=== PATIENT | female | born 1985 | race Caucasian/White ===

== ENCOUNTER 2018-01-11 02:37 | Observation (INO) | payer BC, SELFPAY ==
[2018-01-11] VITALS (23 sets, daily range): BP systolic 100–140; BP diastolic 54–83; PULSE 50–91; RESP 10–19; TEMP 36.5–37.3; O2SAT 95–100; BMI 34.0
--- NOTE | 2018-01-11 | PATH_ITS ---
[facility] Accession Number: [id number] . 01 Material submitted: . APPENDIX . 02 Diagnosis: Appendix, Appendectomy: Acute appendicitis with serositis. Negative for neoplasm. MRV/01/13/2018 . 02 Electronically signed: . Franc Tsai MD, PhD, Pathologist NPI- [id number] . 01 Gross description: . Received in formalin, labeled appendix, is an intact appendix (length-10.2 cm, diameter-1.2 cm) with reyna dull smooth serosa and attached mesoappendix (up to 2.8 cm in depth). The resection margin is received stapled. The lumen contains brown solid soft material. The wall is up to 0.2 cm. No nodules, masses or lesions are identified. The resection margin is inked black. Section code: (A1) resection margin en face and three additional serial sections; (A2) one-half of the bivalved tip. ([id number]) /MRV . 02 Pathologist provided ICD-10: K35.80 . 02 CPT . 715120 Performed at: 01 [facility] [address] [place] [address], [place], [place] [id number] MD Chaparro Casey MD Phone: [phone] Performed at: 02 [facility] [address] [place], [place] [id number] MD Jovany Rodriguez MD Phone: [phone]
--- NOTE | 2018-01-11 02:57 | DI.US.S_ITS ---
PROCEDURE: US ABDOMEN COMPLETE INDICATIONS: severe epigastric pain with radiation to the back TECHNIQUE: Real-time scanning was performed of the abdominal and retroperitoneal organs, with image documentation. COMPARISON: None. FINDINGS: Liver: Liver is normal in size and homogeneous in echotexture. Gallbladder: 2.4 solitary gallstone present. No gallbladder wall thickening or pericholecystic fluid. Negative sonographic Colon's. Biliary ducts: Intrahepatic bile ducts are non-dilated. Extrahepatic bile duct caliber measures 5.0 mm. Normal is 6-7 mm or less in diameter, or 10 mm or less post-cholecystectomy. Pancreas: Visualized portions of the pancreas are sonographically normal. Spleen: Spleen is normal in size and homogeneous in echotexture. Kidneys: Kidneys are normal in size and echotexture. Right kidney measures 13.5 cm long; left kidney measures 11.6 cm long. No hydronephrosis or nephrolithiasis. No solid masses. Aorta: Visualized aorta is normal in caliber at less than 3 cm. Iliacs: Not well-seen. IVC: Intrahepatic inferior vena cava is patent. Miscellaneous: No free abdominal fluid. IMPRESSION: 1. Cholelithiasis without acute cholecystitis. Note: These findings are concordant with the preliminary interpretation. Dictated by: Ebenezer ADAMS Interpreted: Dav Beckett MD on 01/11/2018 at 8:34 Approved by: Robby Beckett M.D. on 01/11/2018 at 9:29
--- NOTE | 2018-01-11 03:00 | ED.ABDPAIN ---
HPI - Abdominal Pain General Chief Complaint: Abdominal Pain Stated Complaint: vomiting, back pain Time Seen by Provider: 01/11/18 02:40 Source: patient Mode of arrival: ambulatory Limitations: no limitations History of Present Illness HPI narrative: 32-year-old female with history of H pylori presents to the emergency department with severe epigastric pain and radiation to her back that started few hours ago. She has associated nausea and vomiting but denies any fever or chills. She had a normal bowel movement just prior to her arrival. She is worse with motion or palpation and improves with rest. She denies any dysuria, frequency or urgency nor any vaginal bleeding or discharge. She had a large meal of pizza and had some alcoholic beverages tonight. She denies any history of gallbladder, liver or pancreatic trouble MD complaint: abdominal pain Onset (ago): hour(s) Pain Consistency: constant Location: epigastric Severity: severe Quality: cramping, stabbing and aching Radiation: back Migration to: no migration Relieving factors: rest Exacerbating factors: eating and movement Associated symptoms: nausea and vomiting Related Data Home Medications Medication Instructions Recorded Confirmed No Known Home Medications 01/11/18 01/11/18 Allergies Allergy/AdvReac Type Severity Reaction Status Date / Time No Known Drug Allergies Allergy Verified 01/11/18 02:52 Review of Systems Review of Systems All systems reviewed & are unremarkable except as noted in HPI and below Constitutional Denies chills, Denies fever(s), Denies lethargy and Denies weakness Eyes Denies change in vision, Denies eye discharge, Denies irritation and Denies loss of vision ENT Ears, Nose, Mouth, and Throat: Denies change in voice, Denies neck pain and Denies sore throat Cardiovascular Denies chest pain, Denies irregular heart rhythm, Denies lightheadedness, Denies palpitations, Denies dyspnea, Denies dyspnea on exertion and Denies orthopnea Respiratory Denies cough, Denies dyspnea, Denies dyspnea on exertion and Denies wheezing Gastrointestinal Gastrointestinal: Reports abdominal pain, Denies change in bowel habits, Denies diarrhea, Reports nausea and Reports vomiting Genitourinary Denies hematuria, Denies flank pain, Denies urinary incontinence and Denies urinary urgency Musculoskeletal Denies neck pain Integumentary/Breasts Denies pruritus, Denies erythema, Denies rash and Denies wounds Neurologic Denies confusion, Denies loss of vision and Denies weakness Psychiatric Denies anxiety, Denies confusion, Denies depression, Denies homicidal ideation and Denies suicidal ideation Endocrine Denies palpitations Hematologic/Lymphatic Denies easy bruising Allergic/Immunologic Denies wheezing [facility] Medical History Abnormal Pap smear of cervix (Chronic) Anxiety (Chronic) Asthma (Chronic 1992) Cardiovascular system problem (Chronic 2016) Depression (Chronic 2011) History of heavy periods (Chronic) Painful menstrual periods (Chronic) Ankle pain (Resolved 2009) Chicken pox (Resolved 1986) Foot pain (Resolved 2009) H. pylori infection (Resolved 2010) Mumps (Resolved 1997) Plantar warts (Resolved 2004) Vaginal yeast infection (Resolved) Surgical History Anesthesia (Resolved) History of nasal surgery (Resolved 1997) Family History Brother Age: 30 Mental health problem Symptomatic congenital cytomegalovirus (CMV) infection Father Age: 65 Hypertension High cholesterol Grandfather Age: 89 Heart disease Grandfather Cancer Lung cancer Brain cancer Grandmother Cancer Cervical cancer Grandmother Diabetes mellitus Mother No problems noted. Family/Other Diabetes mellitus Social History Smoking Status: Never smoker Exam Narrative Exam Narrative: 32-year-old female obviously uncomfortable, rocking back and forth a bit and clutching her upper abdomen. Initial Vital Signs Initial Vital Signs: Vital Signs Temperature 98.3 F 01/11/18 02:46 Pulse Rate 57 L 01/11/18 02:46 Respiratory Rate 18 01/11/18 02:46 Blood Pressure 140/81 H 01/11/18 02:46 Pulse Oximetry 99 01/11/18 02:46 Const General: cooperative, well developed and acute distress Nutritional Appearance: well nourished Orientation: alert, awake, oriented x3 and not confused HENMT Head: normocephalic and atraumatic Ears: external ears normal and TM's normal bilaterally Nose: external nose normal and No nasal discharge Face and sinus: sinuses nontender, face symmetric, no sinus tenderness and No dry mucous membranes Mouth: oral mucosae normal and moist mucous membranes Teeth and gingiva: dentition normal Throat: tonsils normal and uvula midline Chest Chest: normal inspection of the chest Cardio Rate: regular rate Rhythm: regular rhythm Heart Sounds: no click, no gallops, no murmurs and no rubs Pulses: normal peripheral pulses GI Inspection: non-distended Palpation: soft, no hepatosplenomegaly, No guarding, No pulsatile mass and tender Auscultation: normal bowel sounds Back/Spine/Pelvis Back: No CVA tenderness Cervical Spine: cervical ROM normal and No pain with cervical ROM Thoracic/Lumbar Spine: thoracic and lumbar spine normal to inspection Skin General: no rashes or lesions noted, No jaundice and No petechiae Neuro General: alert, oriented x3, gait normal and no focal motor deficits Speech: speech normal Extrem General: full ROM, no clubbing, cyanosis or edema, no pedal edema and no calf tenderness Course Decision to Admit Date: 01/11/18 Decision to Admit time: 05:58 Orders Ordered: ED Orders 01/11/18 02:55 Complete Blood Count AUTO DIFF Stat Comprehensive Metabolic Panel Stat Lipase Stat 01/11/18 02:57 US abdomen complete Stat 01/11/18 04:25 CT abdomen pelvis w con Stat Discontinued Medications Al Hydrox/Mg Hydrox/Simethicone 20 ml/ Lidocaine HCl 15 ml 0 ml PO NOW ONE Stop: 01/11/18 03:35 Last Admin: 01/11/18 03:54 Dose: 35 ml Hydromorphone HCl (Dilaudid) 0.5 mg IV NOW ONE Stop: 01/11/18 02:57 Last Admin: 01/11/18 03:03 Dose: 0.5 mg Hydromorphone HCl (Dilaudid) 0.5 mg IV NOW ONE Stop: 01/11/18 04:49 Last Admin: 01/11/18 04:57 Dose: 0.5 mg Hydromorphone HCl (Dilaudid) 1 mg IV NOW ONE Stop: 01/11/18 06:33 Last Admin: 01/11/18 06:34 Dose: 1 mg Sodium Chloride (Normal Saline 0.9%) 1,000 mls @ 1,000 mls/hr IV BOLUS ONE Stop: 01/11/18 03:55 Last Infusion: 01/11/18 05:02 Dose: 0 mls/hr Admin: 01/11/18 03:03 Dose: 1,000 mls/hr Ondansetron HCl (Zofran) 4 mg IV NOW ONE Stop: 01/11/18 02:57 Last Admin: 01/11/18 03:03 Dose: 4 mg Ondansetron HCl (Zofran) 4 mg IV NOW ONE Stop: 01/11/18 05:03 Last Admin: 01/11/18 05:05 Dose: 4 mg Pantoprazole Sodium (Protonix) 40 mg IV NOW ONE Stop: 01/11/18 03:35 Last Admin: 01/11/18 03:55 Dose: 40 mg Reevaluation(s) Reevaluation #1: Over the course of the visit the patient is becoming increasingly uncomfortable with increased vomiting. She now is complaining of worsening pain in her right lower quadrant and her epigastric discomfort is beginning to us Consultations Consultation #1: Upon receipt of CT scan a call placed to Dr. Deutsch with General surgery who will see the patient at the bedside and write orders plans to visit the OR later today Vital Signs - 8 hr 01/11/18 02:46 01/11/18 05:45 Temperature 98.3 F Pulse Rate 57 L 50 L Respiratory Rate 18 16 Blood Pressure 140/81 H Blood Pressure [Left Arm] 124/70 H Pulse Oximetry 99 99 MDM - Abdominal Pain Differential Diagnosis Differential diagnosis: Likely abdominal pain, constipation, gastroenteritis, pancreatitis, small bowel obstruction and other Medical Records Attestation: I reviewed the patient's medical records. Lab Data Attestation: I reviewed the patient's lab results. Result diagrams: 01/11/18 02:55 01/11/18 02:55 Lab Results 01/11/18 01/11/18 Range/Units 02:55 02:55 WBC 8.8 (4.5-11.0) X10^3/uL RBC 4.39 (4.0-5.2) X10^6/uL Hgb 12.7 (12.0-16.0) g/dL Hct 37.7 (36-46) % MCV 86.0 (80-100) fL MCH 29.0 (26-34) PG MCHC 33.7 (30-36) % RDW 13.3 (11.6-14.8) % Plt Count 274 (150-400) X10^3/uL Neut % (Auto) 54.0 (50-75) % Lymph % (Auto) 37.1 (25-40) % [place] % (Auto) 6.2 (3-14) % Eos % (Auto) 2.2 (2-4) % Baso % (Auto) 0.5 (0-2) % Neut # (Auto) 4700 (8583-1957) /uL Sodium 144 (137-145) mmol/L Potassium 4.0 (3.4-5.1) mmol/L Chloride 107 (98-107) mmol/L Carbon Dioxide 26 (22-32) mmol/L BUN 16 (7-17) mg/dL Creatinine 0.70 (0.52-1.04) mg/dL Estimated GFR > 60.0 (>60) mL/min BUN/Creatinine Ratio 22.9 H (6-22) Glucose 112 H (70-100) mg/dL Calcium 9.7 (8.4-10.2) mg/dL Total Bilirubin 0.4 (0.2-1.3) mg/dL AST 20 (14-36) IU/L ALT 25 (9-52) IU/L Alkaline Phosphatase 63 (38-126) U/L Total Protein 7.5 (6.3-8.2) g/dL Albumin 4.5 (3.5-5.0) g/dL Globulin 3.0 (1.7-4.1) g/dL Albumin/Globulin Ratio 1.5 (1.0-2.8) Lipase 57 (23-300) U/L Point of care testing: Point of Care Testing Test Results Negative Urine Dip Bedside Urine Glucose Negative Bedside Urine Bilirubin - Negative Bedside Urine Ketone - Negative Urine Specific [place] 1.030 Bedside Urine Occult Blood - Negative Bedside Urine pH 6.0 Bedside Urine Protein - Negative Bedside Urine Urobilinogen - Negative Bedside Urine Nitrite - Negative Bedside Urine Leukocytes - Negative Esterase Imaging Data US - abdomen: Radiologist's impression: Cholelithiasis without biliary dilatation or signs of cholecystitis, mild hepatosplenomegaly CT scan - abdomen: Radiologist's impression: Findings highly consistent with early acute appendicitis with multiple appendicoliths. No evidence of perforation Discharge Plan Departure Patient Disposition: Admitted As Inpatient Clinical Impression: Acute appendicitis
[2018-01-11] MEDS: ONDANSETRON 4 MG/2 ML INJ IV ×3 (03:03→09:00)
[2018-01-11] MEDS: HYDROMORPHONE 1 MG INJ 0.5 MG IV (03:03)
[2018-01-11] MEDS: SODIUM CHLORIDE 0.9% 1,000 ML 1000 ML IV (03:03)
[2018-01-11 03:12] LABS: Add Manual Diff / Slide Review NO; Basophils Percent Auto 0.5 % (0-2); Eosinophils Percent Auto 2.2 % (2-4); Hematocrit 37.7 % (36-46); Hemoglobin 12.7 g/dL (12.0-16.0); Lymphocytes Percent Auto 37.1 % (25-40); Mean Corpuscular HGB Conc 33.7 % (30-36); Monocytes Percent Auto 6.2 % (3-14); Neutrophils Absolute Auto 4700 /uL (3000-5900); Platelet Count 274 X10^3/uL (150-400); Red Blood Cell Count 4.39 X10^6/uL (4.0-5.2); Red Cell Distribution Width 13.3 % (11.6-14.8); White Blood Cell Count 8.8 X10^3/uL (4.5-11.0)
[2018-01-11 03:17] LABS: Alanine Aminotransferase 25 IU/L (9-52); Albumin 4.5 g/dL (3.5-5.0); Albumin Globulin Ratio 1.5 (1.0-2.8); Alkaline Phosphatase 63 U/L (38-126); Aspartate Aminotransferase 20 IU/L (14-36); BUN Creatinine Ratio 22.9 (6-22); Bilirubin Total 0.4 mg/dL (0.2-1.3); Blood Urea Nitrogen 16 mg/dL (7-17); Calcium 9.7 mg/dL (8.4-10.2); Carbon Dioxide 26 mmol/L (22-32); Chloride 107 mmol/L (98-107); Estimated Glomerular Filt Rate > 60.0 mL/min (>60); Glucose 112 mg/dL (70-100); HEMOLYSIS < 15 (0-50); Lipase 57 U/L (23-300); Sodium 144 mmol/L (137-145); Total Protein 7.5 g/dL (6.3-8.2)
[2018-01-11] MEDS: MAG HYDROX/ALUMINUM/SIMETH SUS 20 ML, LIDOCAINE VISCOUS 2% 15 ML PO (03:54)
[2018-01-11] MEDS: PANTOPRAZOLE 40 MG VIAL IV ×2 (03:55→10:35)
--- NOTE | 2018-01-11 04:25 | DI.CT.S_ITS ---
PROCEDURE: CT ABDOMEN PELVIS W CON INDICATIONS: severe abdominal pain TECHNIQUE: After the administration of intravenous contrast, 5 mm thick sections acquired from the diaphragm to the symphysis. 5 mm coronal and sagittal reformats were acquired. For radiation dose reduction, the following was used: automated exposure control, adjustment of mA and/or kV according to patient size. COMPARISON: [facility], , US ABDOMEN COMPLETE, 01/11/2018, 3:28. FINDINGS: Image quality: Excellent. ABDOMEN: Lung bases: Lung bases are clear. Heart size is normal. Solid organs: Liver is normal in size and enhancement. Gallbladder unremarkable. Biliary system is non dilated. Pancreas enhances normally. Spleen is normal in size and enhancement. No adrenal nodules. Kidneys demonstrate normal size and enhancement, without hydronephrosis. Peritoneum and bowel: Possible distal esophageal wall thickening although limited evaluation given decompressed test and recommend clinical correlation. Scattered incidentally noted colonic diverticula. The appendix is enlarged measuring up to 7-11 mm in diameter. The appendix appears tortuous and there is an appendicolith seen measuring approximately 6 mm image 62. There is also a small appendicolith measuring approximately 1 mm seen on image 22 series 6. There is mild periappendiceal fat stranding and hazy attenuation in keeping with acute appendicitis. No definite free air is seen to suggest perforation. No abscess identified. There is mild pelvic free fluid. Nodes and vessels: No retroperitoneal or mesenteric adenopathy by size criteria. Shot[place] scattered mesenteric lymph nodes which appear subcentimeter in size. Aorta and inferior vena cava are normal in size. Miscellaneous: No ventral hernias. PELVIS: Genitourinary: Bladder wall thickness is normal. Miscellaneous: No inguinal hernias or adenopathy. Bones: No suspicious bony lesions. No vertebral body compression fractures. IMPRESSION: Acute appendicitis with multiple appendicoliths as detailed above. No evidence of bowel perforation as above. Concordant with the preliminary study interpretation. Dictated by: De Cristobal M.D. on 01/11/2018 at 7:40 Approved by: De Cristobal M.D. on 01/11/2018 at 7:49
--- NOTE | 2018-01-11 04:55 | PC.NURSE ---
pt reports pain increasing. pt vomited. provider notified, order recieved.
[2018-01-11] MEDS: HYDROMORPHONE 0.5 MG INJ IV (04:57)
[2018-01-11] MEDS: HYDROMORPHONE 1 MG INJ IV ×3 (06:34→12:16)
--- NOTE | 2018-01-11 07:33 | PM.HP.1 ---
History of Present Illness Date Patient Seen: 01/11/18 Time Patient Seen: 06:33 Chief complaint: vomiting, back pain Narrative: 32-year-old otherwise healthy female who presented the emergency department early this morning with 24 hr history of progressive abdominal pain. She states that the pain was somewhat sharp and intermittent in nature but localized to the epigastric region. Pain did not radiate to the back of the shoulder. Denies any chest pain or shortness of breath. No subjective fever or chills. However, she has been nauseated and vomited on several occasions. She last tolerated a small amount of regular food at approximately 6:00 p.m. last evening but she has been vomiting intermittently ever since. She has had nothing to eat or drink since that time. She is completely anorexic currently. Throughout the morning hours today she began to experience more localized pain and tenderness in the right lower quadrant. Her epigastric pain has subsided significantly. Her major complaint currently is persistent sharp pain in the right lower quadrant region that does not radiate elsewhere. No pelvic pain. She is 1 week away from her regular normal menses. She has had no abnormal vaginal bleeding or discharge. No dysuria or hematuria. Last bowel movement was yesterday and reportedly normal. She is passing flatus today. Denies melena, hematochezia, or bright red blood per rectum. Patient History Medical History Acute appendicitis (Acute) Cholelithiasis (Acute) Abnormal Pap smear of cervix (Chronic) Anxiety (Chronic) Asthma (Chronic 1992) Cardiovascular system problem (Chronic 2016) Depression (Chronic 2011) History of heavy periods (Chronic) Painful menstrual periods (Chronic) Ankle pain (Resolved 2009) Chicken pox (Resolved 1986) Foot pain (Resolved 2009) H. pylori infection (Resolved 2010) Mumps (Resolved 1997) Plantar warts (Resolved 2004) Vaginal yeast infection (Resolved) Surgical History Anesthesia (Resolved) History of nasal surgery (Resolved 1997) Family & Social History Family History: Reviewed 01/11/18 by Devaughn Deutsch MD Safety & Behavioral: Feels Safe in Current Yes Environment Tobacco & Substance use: Smoking Status Never smoker Meds Home Medications Medication Instructions Recorded Confirmed Type No Known Home Medications 01/11/18 01/11/18 History Allergies Allergy/AdvReac Type Severity Reaction Status Date / Time No Known Drug Allergies Allergy Verified 01/11/18 02:52 Review of Systems Constitutional Constitutional: Reports anorexia, Denies chills, Denies fatigue and Denies fever(s) Eyes Eyes: Denies double vision, Denies itchy eyes and Denies loss of vision ENT Ears, Nose, Mouth, and Throat: No difficulty swallowing, No dizziness and No pain with swallowing Cardiovascular Cardiovascular: Denies chest pain with activity, Denies fainting, Denies rapid, pounding, or irregular heartbeat, Denies shortness of breath and Denies shortness of breath with activity Respiratory Respiratory: Denies dyspnea, Denies dyspnea on exertion and Denies wheezing Gastrointestinal Gastrointestinal: Denies dysphagia and Denies odynophagia Genitourinary Genitourinary: Denies vaginal discharge and Denies hematuria Musculoskeletal Musculoskeletal: Denies joint swelling and Denies muscle weakness Integumentary/Breasts Skin/Breast: Denies rash and Denies unusual bruising Neurologic Neurologic: Denies dizziness, Denies syncope and Denies loss of vision Psychiatric Psychiatric: Reports anxiety and Denies depression Endocrine Endocrine: Denies fatigue and Denies palpitations Hematologic/Lymphatic Hematologic/Lymphatic: Denies easy bleeding and Denies easy bruising Allergic/Immunologic Allergic/Immunologic: Denies itchy eyes and Denies wheezing Exam Vital Signs (past 8 hours): - 01/11/18 02:46 01/11/18 05:45 Temperature 98.3 F Pulse Rate 57 L 50 L Respiratory Rate 18 16 Blood Pressure 140/81 H Blood Pressure [Left Arm] 124/70 H Pulse Oximetry 99 99 Oxygen Delivery Method Room Air Narrative Exam Narrative: Well-nourished well-developed moderately obese female sitting comfortably in the gurney in the emergency department in no acute distress. Alert oriented x3. Dr. Navarro is at the bedside for my entire visit and examination. She is afebrile with maximal temperature 98.3? here in the emergency department. No tachycardia. Normal blood pressure. Sclera nonicteric Neck supple Chest clear to auscultation bilaterally with regular rate and rhythm. No murmurs, gallops, rubs. No crackles or wheezes Abdomen is mildly obese but soft and nondistended. No hepatomegaly. No masses. She is minimally tender in the epigastrium with no Colon sign. However, she is focally tender in the right lower quadrant near McBurney's point with involuntary guarding at that level. Negative Rovsing sign. Negative iliopsoas sign. Extremities show no clubbing, cyanosis, or edema Objective Labs Result Diagrams: 01/11/18 02:55 01/11/18 02:55 Labs: Laboratory Results - last 24 hr 01/11/18 01/11/18 02:55 02:55 WBC 8.8 RBC 4.39 Hgb 12.7 Hct 37.7 MCV 86.0 MCH 29.0 MCHC 33.7 RDW 13.3 Plt Count 274 Neut % (Auto) 54.0 Lymph % (Auto) 37.1 [place] % (Auto) 6.2 Eos % (Auto) 2.2 Baso % (Auto) 0.5 Neut # (Auto) 4700 Sodium 144 Potassium 4.0 Chloride 107 Carbon Dioxide 26 BUN 16 Creatinine 0.70 Estimated GFR > 60.0 BUN/Creatinine Ratio 22.9 H Glucose 112 H Calcium 9.7 Total Bilirubin 0.4 AST 20 ALT 25 Alkaline Phosphatase 63 Total Protein 7.5 Albumin 4.5 Globulin 3.0 Albumin/Globulin Ratio 1.5 Lipase 57 Urinalysis is negative. Urine test is negative. I have personally reviewed her ultrasound as well as CT scan. She has incidental gallstone on ultrasound but no other significant changes. CT scan shows appendical lift with probable early inflammation consistent with acute appendicitis. No other abnormalities appreciated other than small amount of free pelvic fluid. No evidence of abscess or rupture. No free air. No dilated bowel. Assessment & Plan Plan: Assessment/Plan Narrative: 32-year-old female with incidental cholelithiasis but examination, history, and CT scan consistent with acute appendicitis. I discussed my impression findings with the patient in detail. I recommend laparoscopic appendectomy today. Technical details of the operation were explained. Anticipated healing and recovery times were also discussed. Risks, benefits, alternatives to surgery were explained. I would not recommend antibiotic treatment only. Risks including but not limited to anesthesia, bleeding, infection, pain, need for drain, poor wound healing, need to convert to open procedure, appendiceal stump leak, colon injury, ureter injury, bladder injury, small bowel injury, need for further major abdominal surgery, normal appendix, need for further studies were discussed in detail. All questions were answered to her satisfaction, and she voiced understanding. Consent was placed on the chart. Orders were written. We will proceed to the operating room later this morning. In the interim we will monitor the cholelithiasis which I believe is incidental and otherwise asymptomatic at this point. If at some point in the future she has issues with biliary colic then cholecystectomy would be indicated at that time. She voiced understanding in that regard.
[2018-01-11] MEDS: SODIUM CHLORIDE 0.9% 1,000 ML 150 ML IV (07:51)
--- NOTE | 2018-01-11 11:55 | PC.NURSE ---
Admit: Arrived to room 212 a0r
--- NOTE | 2018-01-11 11:55 | PC.NURSE ---
Addendum entered by Key Bocanegra R.N. 01/11/18 12:43: Off floor to surgery at this time. Surgery crew was made aware that patient still needs to sign consent. Patient's phone and round kiln drawer placed in her closet (per her request) while patient is off of the floor. Original Note: Admit/Summary: Arrived to room 212 at 0830 via stretcher. Ambulatory with steady gait, a bit hunched over r/t abd pain. Reported 7/10 RLQ abd pain- well managed with IV Dilaudid per e-mar. Patient had nausea with a few dry heaves, so was given IV Zofran also. NPO, swished mouth X2. Lungs CTA, HRR. RA 98%. Abd soft, tender RLQ. BT+, hypoactive. Voiding per BR, hat in toilet. IVF per orders, site in L AC WNL. Oriented to room and call light, encouraged to make needs known. Light in reach.
[2018-01-11] MEDS: LACTATED RINGERS 1,000 ML 42 ML IV (13:22)
[2018-01-11] MEDS: CEFOTETAN 2 GM/50 ML PIGGYBACK IV (13:49)
--- NOTE | 2018-01-11 13:54 | PM.PREOP ---
Pre-operative Note Interval Note Pre-op Check: Yes History & Physical Reviewed by Physician, Yes Exam Performed and Yes History & Physical exam performed today by Physician Changes: No H&P completed within 30 days and has changed as indicated here:: Patient seen and examined in the emergency department early this morning. History physical examination placed on the chart dated today has not changed over the last several hours. Will proceed to the operating room for laparoscopic appendectomy as planned.
[2018-01-11] MEDS: BUPIVACAINE 0.5% (PF) VIAL 30 ML INJ (14:18)
[2018-01-11] MEDS: LIDOCAINE 1% W/EPI INJ 20 ML INJ (14:22)
--- NOTE | 2018-01-11 14:31 | SUR.OPER ---
Supine on padded OR bed, head on pillow, arms secured on padded arm boards at <90 degrees abduction, legs uncrossed, safety belt at thigh, tape over blanket over lower legs.
--- NOTE | 2018-01-11 15:11 | P.OP_ITS ---
Operative Date/Time/Diagnoses Date of procedure: 01/11/18 Time of procedure: 15:04 Post-op diagnosis: other (Acute suppurative appendicitis) Procedure & Clinicians Procedure: Laparoscopic appendectomy Same procedure as scheduled: Yes Indications: 32-year-old female with progressive right lower quadrant abdominal pain throughout the course of the day. Examination and evaluation were consistent with acute appendicitis. Laparoscopic appendectomy was recommended. Surgeon: Devaughn Deutsch Click Yes if Unassisted: Yes Anesthesia Type: General Operative Notes Findings: 1. Acute suppurative appendicitis without rupture or abscess 2. Small amount of purulent fluid in the right paracolic gutter adjacent to the appendix 3. Otherwise grossly normal liver, gallbladder, colon, small bowel, omentum, and uterus within the limits of laparoscopic visualization Closure Type: primary Specimen(s): other (Appendix) Implants & Drains: None Applied: catheter (Zurita catheter to urinary bladder for the case then removed prior to extubation) Estimated Blood Loss (mL): 30 Blood products transfused: none Procedure in detail: After obtaining informed consent the patient was brought to the operating room and placed supine on the table. After satisfactory induction of anesthesia a Zurita catheter was inserted to decompress the urinary bladder. Abdomen was prepped and draped in usual sterile fashion. A SCOAP time- out was performed per standard protocol. A one-to-one mixture of 1% lidocaine with 1 100,000 epinephrine and 0.5% plain Marcaine was injected in the skin and subcutaneous tissue at the superior aspect of the umbilicus for postoperative analgesia. Vertical midline incision was created with a 11 scalpel blade at the superior aspect of the umbilicus for a distance of approximately 2 cm. Blunt dissection revealed the rectus fascia which was divided in the midline with a 11 scalpel blade, and the fascial edges were secured bilaterally with Eyad clamps. Fascia was elevated into the operative field and secured superiorly and inferiorly with interrupted 0 Vicryl sutures. Peritoneum was grasped between Mery clamps and entered sharply with Metzenbaum scissors. Blunt 12 mm Henley trocar was then inserted under direct visualization and a carbon dioxide pneumoperitoneum was created. Abdomen was visually explored with a 30 degree 5 mm laparoscoped. Findings are as above. Under direct laparoscopic visualization to individual 5 mm trocars were placed in the lower midline of the abdomen after achieving local anesthesia. Fam graspers were used to manipulate the cecum, terminal ileum, and appendix to expose the acutely inflamed appendix. Appendiceal base at its junction with the cecum was identified and noted to be soft without induration. Fam grasper was used to dissect through the avascular plane adjacent to the appendiceal base thereby creating a window between the mesoappendix and the appendix itself. A single application of the laparoscopic Endo JAMIL 45 mm stapler using a tissue load was employed to divide the attachment of the appendix to the cecum. A 2nd application of the stapler using a vascular load was then applied to divide the mesoappendix. Specimen was retrieved through the umbilical incision using an endo-pouch. A small vessel was noted to bleed between the yeni themselves and this was controlled with 2 clips proximally and 1 clip distally using a 10 mm laparoscopic clipping device. Once hemostasis was verified the right lower quadrant was irrigated with copious amounts of sterile saline solution and suction from the abdomen. Irrigant was noted to return clear. Staple lines were then meticulously examined and noted to be both hemostatic and completely intact. No evidence of leakage from the cecum. Instruments and trocars were then removed under direct visualization and hemostasis verified. Carbon dioxide was evacuated. Fascia at the umbilical site was closed with the previously placed 0 Vicryl suture. Skin at all 3 incisions was then closed in a running subcuticular fashion with 4 0 Monocryl suture. Dermal adhesive was applied to the skin. Zurita catheter was removed from the urinary bladder. Anesthesia was reversed the patient extubated in the operating room. She was taken recovery in stable condition. Complications: none Condition: stable Disposition: PACU Plan for aftercare: 1. Return to surgical floor for ongoing convalescence
[2018-01-11] MEDS: fentaNYL 100 MCG/2 ML INJ 50 MCG IV (15:18)
--- NOTE | 2018-01-11 16:00 | PC.NURSE ---
Mago shift note: Patient admitted to AC from PACU in stable condition, awake, alert, and pleasant. Tolerating sips of water, no N/V. VSS and afebrile. Abdomen soft, slight distended, with 3 incisions to umbilicus, and mid lower abdomen secured with dermabond and BHUMIKA. No abnormal drainage or bleeding. SCDs in place. Call light within reach.
[2018-01-11] MEDS: SODIUM CHLORIDE 0.9% 1,000 ML 100 ML IV (16:15)
[2018-01-11] MEDS: OXYCODONE IR 5 MG TABLET PO (19:23)
[2018-01-11] MEDS: HYDROMORPHONE 2 MG INJ 1 MG IV (21:44)
[2018-01-12] VITALS (7 sets, daily range): BP systolic 102–109; BP diastolic 45–64; PULSE 60–64; RESP 16–20; TEMP 36.7–36.9; O2SAT 96–98
[2018-01-12] MEDS: SODIUM CHLORIDE 0.9% FLUSH 10 ML IV ×3 (04:07→09:44)
[2018-01-12] MEDS: HYDROMORPHONE 1 MG INJ IV ×2 (04:08→07:48)
--- NOTE | 2018-01-12 06:26 | PC.NURSE ---
Assumed care of pt from outgoing shift at 2300 8-27. Pt asleep at this time. will assess later. Pt belongings and call light within reach. fluids almost complete. will monitor Pt awake around 0030- states pain 2/10 denies need for pain medication. Pt uses call light. Pt assessment completed and charted. Pt bed alarm placed as pt is sleepy and has been getting diluadid. Pt uses call light . 0400- pt awaks and asking for pain meds. given per JUL. pt asleep upon reassessment. will continue to monitor.
--- NOTE | 2018-01-12 08:10 | PC.NURSE ---
Addendum entered by Key Bocanegra R.N. 01/12/18 10:23: Ambulated [facility] X2 accompanied by this financial writer. C/O slight dizziness with ambulation, but we took it slow and she did well. Back in bed now, hoping to close her eyes and nap. Agrees to call with needs and for SBA OOB. Light in reach. Original Note: Addendum entered by Key Bocanegra R.N. 01/12/18 09:59: Awake and reports she wasn't really able to eat any of her breakfast r/t nausea. She wasn't sure, but it seems likely nausea r/t IV Dilaudid. Medicated with IV Zofran and given some broth & crackers to work on. Medicated with Tylenol + 5 mg Oxycodone approx 0945. She's hoping she can nap for a bit if the nausea resolves. Discussed plan to ambulate in halls after her nap and she was agreeable. Call light in reach. Original Note: Addendum entered by Key Bocanegra R.N. 01/12/18 09:27: Resting quietly in bed with eyes closed. Respirations regular and unlabored, 16/min. No s/sx distress or discomfort. Pain 0 on FLACC scale. Will let rest for now. Call light in reach. Original Note: Addendum entered by Key Bocanegra R.N. 01/12/18 08:13: Able to make needs known and calls appropriately. Agrees to call for SBA OOB, light in reach. Original Note: Shift summary: Awake and alert, oriented X3. C/O 5/10 abd pain, medicated with 1 mg IV Dilaudid for the same. Discussed plan to try oral pain meds again this morning and she was agreeable. 3 abd lap sites BHUMIKA and well-approximated with skin glue. No active bleeding or drainage noted. Abd soft, tender. Tolerating PO's without N/V. BT+, denies flatus. Voiding WNL.
--- NOTE | 2018-01-12 09:18 | CM.DANOTE ---
DCP: Case received, EMR reviewed and met with patient. Introduced self and role. DCP template completed with information currently available. Patient is a 32 year old female who admitted yesterday morning to the care of the hospitalist team. PCP: Dr. Dorado. Payer: confirmed: [facility] Out of [facility]. Patient was admitted to hospital with symptoms of vomiting, and abdominal pain. Carries a diagnosis of acute appendicitis. Had surgery yesterday. Patient lives in [place] with her spouse. P: Goal is to return home when stable. Disha Paulson RN/[employer]
[2018-01-12] MEDS: OXYCODONE IR 5 MG TABLET PO ×2 (09:44→13:32)
[2018-01-12] MEDS: ACETAMINOPHEN 325 MG TABLET 650 MG PO ×2 (09:44→13:32)
[2018-01-12] MEDS: ONDANSETRON 4 MG/2 ML INJ IV (09:44)
--- NOTE | 2018-01-12 12:41 | PM.DS.1 ---
History of Present Illness Date Patient Seen: 01/12/18 Time Patient Seen: 12:42 Chief complaint: vomiting, back pain Narrative: 32-year-old otherwise healthy female who presented the emergency department early this morning with 24 hr history of progressive abdominal pain. She states that the pain was somewhat sharp and intermittent in nature but localized to the epigastric region. Pain did not radiate to the back of the shoulder. Denies any chest pain or shortness of breath. No subjective fever or chills. However, she has been nauseated and vomited on several occasions. She last tolerated a small amount of regular food at approximately 6:00 p.m. last evening but she has been vomiting intermittently ever since. She has had nothing to eat or drink since that time. She is completely anorexic currently. Throughout the morning hours today she began to experience more localized pain and tenderness in the right lower quadrant. Her epigastric pain has subsided significantly. Her major complaint currently is persistent sharp pain in the right lower quadrant region that does not radiate elsewhere. No pelvic pain. She is 1 week away from her regular normal menses. She has had no abnormal vaginal bleeding or discharge. No dysuria or hematuria. Last bowel movement was yesterday and reportedly normal. She is passing flatus today. Denies melena, hematochezia, or bright red blood per rectum. Discharge Providers Date of admission: 01/11/18 06:58 Primary care physician: Yenni Dorado DO Discharge provider: Devaughn Deutsch MD Summary Discharge Diagnosis: Acute appendicitis (Acute) Laparoscopic appendectomy January 11, 2018 Cholelithiasis (Acute) Abnormal Pap smear of cervix (Chronic) Anxiety (Chronic) Asthma (Chronic 1992) Cardiovascular system problem (Chronic 2016) Depression (Chronic 2011) History of heavy periods (Chronic) Painful menstrual periods (Chronic) Ankle pain (Resolved 2009) Chicken pox (Resolved 1986) Foot pain (Resolved 2009) H. pylori infection (Resolved 2010) Mumps (Resolved 1997) Plantar warts (Resolved 2004) Vaginal yeast infection (Resolved) Anesthesia (Resolved) History of nasal surgery (Resolved 1997) Hospital Course: Patient presented the emergency department with progressive right lower quadrant abdominal pain. Examination and evaluation were consistent with acute appendicitis. She was taken for urgent laparoscopic appendectomy which she tolerated well. Findings were consistent with acute suppurative appendicitis at that time. She was admitted to the regular surgical floor postoperatively where she remained afebrile hemodynamically stable throughout. She had spontaneous return of bowel bladder function without any issues. She is tolerating a regular diet at the time of discharge. Pain is well controlled with oral oxycodone. She is ambulating unassisted. Incisions are healing nicely without evidence of infection or breakdown. No complications otherwise. Because of her overall stable condition she is discharged home on postoperative day 1. Instructions have been reviewed with her extensively. She will follow up in 2 weeks in surgery clinic. However, she understands to call or return sooner for fever, chills, progressive pain, erythema, wound drainage, intractable nausea or vomiting, and inability to tolerate a diet. Status at Discharge Cognitive/behavioral status at discharge: Alert oriented x3 Functional status at discharge: independent ambulation Overall status at discharge: patient is progressing back to baseline Time Spent with Patient Less than 30 minutes Exam Vital Signs (past 8 hours): - 01/12/18 08:00 01/12/18 08:05 01/12/18 11:18 Temperature 98.4 F Pulse Rate 60 Respiratory Rate 16 18 Blood Pressure 104/61 Pulse Oximetry 97 98 01/12/18 12:25 Temperature 98.4 F Pulse Rate 64 Respiratory Rate 16 Blood Pressure 109/64 Pulse Oximetry 97 Oxygen Delivery Method Room Air Oxygen Flow Rate 0 Narrative Exam Narrative: Well-nourished well-developed mildly obese female in no acute distress. Alert oriented x3 Sclera nonicteric Regular rate and rhythm Chest clear to auscultation Abdomen soft, nondistended, no masses. She is minimally tender to palpation without guarding or rebound. Incisions are clean, dry, and intact without erythema or drainage. No ecchymosis. Extremities show no clubbing, cyanosis, or edema Objective Labs Result Diagrams: 01/11/18 02:55 01/11/18 02:55 Labs: No new images for review prior to discharge Discharge Plan Discharge Plan Patient Disposition: Home Provider Discharge Instructions Diet: Diet as Tolerated Activity: May walk as much as desired May ride in vehicle No driving while taking opioid pain medications May climb stairs Avoid vigorous strenuous exercise for 2 weeks Cold/Heat Therapy: May apply ice pack to incisions as needed for comfort Skin/Wound/Dressing Care Report to your healthcare provider any signs of infection, such as:: chills, fever, increased pain and unusual drainage Dressing: No dressing necessary May shower Do not soak incision in bathtub or pool for 2 weeks Discharge Data Primary Care Provider: Yenni Dorado Attending Provider: Devaughn Duetsch Admit Date/Time: 01/11/18 06:58 Quality VTE Deep Vein Thrombosis/Pulmonary Embolism Present on Admission: No
--- NOTE | 2018-01-12 13:42 | CM.DPC ---
DCP Cont: Patient is to be discharged today. Patient is in agreement with plan, and has supportive spouse. P: Discharged to home. Disha Paulson RN/[employer]
== END 2018-01-12 14:29 | disposition home or self-care (01) ==
LOC: ED 06:56 → AC 07:13
PROVIDERS: Admitting Provider Surgery; Emergency Provider Emergency Medicine; PCP Family Medicine; Visit Provider Surgery
PROC: 0DTJ4ZZ Resection of Appendix, Percutaneous Endoscopic Approach (ICD-10-PCS; CPT 44970; principal; 2018-01-11 12:15)
DX: K35.89 Other acute appendicitis (principal); K80.20 Calculus of gallbladder without cholecystitis without obstruction
CPT/HCPCS: 44970; 36591; 74177; 76700; 80053; 81003; 81025; 83690; 85025; 96361; 96374; 96375; 96376; 99220; 99283; 99285; G0378; C9113; J1170; J2250; J2405; J3010; Q9967

== ENCOUNTER → 2019-01-26 08:23 | Outpatient (CLI) | payer BC, SELFPAY ==
[2019-01-24 11:22] VITALS: BMI 34.0
[2019-01-26 09:40] LABS: Add Manual Diff / Slide Review NO; Basophils Absolute Auto 0 /uL (0-100); Basophils Percent Auto 0.6 % (0-2); Eosinophils Absolute Auto 200 /uL (0-450); Eosinophils Percent Auto 3.4 % (2-4); Hematocrit 36.9 % (36-46); Hemoglobin 12.4 g/dL (12.0-16.0); Lymphocytes Absolute Auto 2000 /uL (1100-4500); Lymphocytes Percent Auto 42.4 % (25-40); Mean Corpuscular HGB Conc 33.7 % (30-36); Mean Corpuscular Hemoglobin 29.9 PG (26-34); Mean Corpuscular Volume 88.7 fL (80-100); Monocytes Absolute Auto 300 /uL (0-900); Monocytes Percent Auto 5.8 % (3-14); Neutrophils Absolute Auto 2200 /uL (1500-7000); Neutrophils Percent Auto 47.8 % (50-75); Platelet Count 285 X10^3/uL (150-400); Red Blood Cell Count 4.16 X10^6/uL (4.0-5.2); Red Cell Distribution Width 13.3 % (11.6-14.8); White Blood Cell Count 4.7 X10^3/uL (4.5-11.0)
[2019-01-26 10:34] LABS: Alanine Aminotransferase 15 IU/L (9-52); Albumin 4.5 g/dL (3.5-5.0); Albumin Globulin Ratio 1.4 (1.0-2.8); Alkaline Phosphatase 58 U/L (38-126); Aspartate Aminotransferase 25 IU/L (14-36); BUN Creatinine Ratio 21.7 (6-22); Bilirubin Total 0.6 mg/dL (0.2-1.3); Blood Urea Nitrogen 13 mg/dL (7-17); Calcium 9.6 mg/dL (8.4-10.2); Carbon Dioxide 25 mmol/L (22-32); Chloride 105 mmol/L (98-107); Estimated Glomerular Filt Rate > 60.0 mL/min (>60); Globulin 3.2 g/dL (1.7-4.1); Glucose 88 mg/dL (70-100); HEMOLYSIS < 15 (0-50); Potassium 4.3 mmol/L (3.4-5.1); Sodium 141 mmol/L (137-145); Total Protein 7.7 g/dL (6.3-8.2)
[2019-01-26 10:59] LABS: Free T4, Direct Thyroxine 1.01 ng/dL (0.78-2.19)
[2019-01-26 11:13] LABS: Thyroid Stimulating Hormone 2.59 uIU/mL (0.47-4.68)
[2019-01-26 11:55] LABS: Pregnancy Test Urine Negative (Negative); Urine Amphetamines Negative (Negative); Urine Barbiturates Negative (Negative); Urine Benzodiazepines Negative (Negative); Urine Cocaine Negative (Negative); Urine MDMA Negative (Negative); Urine Methadone Negative (Negative); Urine Methamphetamines Negative (Negative); Urine Morphine/Opi cutoff 2000 Negative (Negative); Urine Oxycodone Negative (Negative); Urine Phencyclidine Negative (Negative); Urine Tetrahydrocannabinol Negative (Negative); Urine Tricyclic Antidepressant Negative (Negative)
== END ==
PROVIDERS: Visit Provider Psychiatry & Neurology Psychiatry
DX: F32.9 Major depressive disorder, single episode, unspecified (principal)
CPT/HCPCS: 36415; 80053; 80305; 81025; 84439; 84443; 85025

== ENCOUNTER 2020-06-13 20:28 | Emergency (ER) | payer BC, SELFPAY ==
[2019-01-24 11:22] VITALS: BMI 34.0
[2020-06-13 20:39] VITALS: BP 134/78; PULSE 67; RESP 16; TEMP 36.7; O2SAT 98; BMI 34.2
[2020-06-13 21:54] VITALS: BP 116/69; PULSE 53; RESP 20; TEMP 36.9; O2SAT 100
--- NOTE | 2020-06-13 22:11 | ED.GENADULT ---
HPI - General Adult General Chief complaint: Dizziness Stated complaint: spotting and cramping, not going away Time Seen by Provider: 06/13/20 21:54 Source: patient Mode of arrival: Ambulatory Limitations: no limitations History of Present Illness HPI narrative: Patient is a 34-year-old female here for evaluation of dizziness. She states has been going on for the past week. It is worse when she turns her head from left to right and does seem to improve when she is looking straight forward. She states that is not kept her from working out. She has not fallen. No ringing in her ears. No sinus congestion. No sore throat. She also reports that she has had 1 week of vaginal spotting and cramping. She states she is approximately fpc through her menstrual cycle. She is not on control. Related Data Home Medications Medication Instructions Recorded Confirmed ascorbate calcium (vitamin C) 500 500 mg PO DAILY 01/25/19 04/26/20 mg tablet cholecalciferol (vitamin D3) 50 2,000 unit PO DAILY 01/25/19 04/26/20 mcg (2,000 unit) capsule multivitamin 1 tab PO DAILY 01/25/19 04/26/20 hydroxyzine HCl 25 mg tablet 12.5 mg PO QID PRN tab 09/12/19 04/26/20 Previous Rx's Medication Instructions Recorded sertraline 50 mg tablet 100 mg PO DAILY #180 tab 04/26/20 meclizine 25 mg PO TID PRN #14 tab 06/13/20 Allergies Allergy/AdvReac Type Severity Reaction Status Date / Time watermelon Allergy Mild itchy mouth Verified 06/13/20 20:44 avocado AdvReac Mild nausea, Verified 06/13/20 20:44 vomitting banana AdvReac Mild itchy Verified 06/13/20 20:44 throat nitrous oxide AdvReac panic Verified 06/13/20 20:44 attack Review of Systems Constitutional Constitutional: Denies fatigue, Denies fever(s) and Denies headache(s) Eyes Eyes: Denies change in vision ENT Ears, Nose, Mouth, and Throat: Reports vertigo, Denies dizziness, Denies ear discharge, Denies otalgia, Denies headache(s) and Denies sore throat Cardiovascular Cardiovascular: Denies chest pain, Denies lightheadedness and Denies dyspnea Respiratory Respiratory: Denies dyspnea Gastrointestinal Gastrointestinal: Denies abdominal pain, Denies nausea and Denies vomiting Genitourinary Genitourinary: Denies dysuria Genitourinary: Denies dysuria and Reports vaginal discharge Musculoskeletal Musculoskeletal: Denies numbness and Denies tingling Integumentary/Breasts Skin/Breast: Denies lesions and Denies rash Neurologic Neurologic: Denies confusion, Reports vertigo, Denies dizziness, Denies headache(s), Denies numbness and Denies tingling Psychiatric Psychiatric: Denies confusion Endocrine Endocrine: Denies fatigue Hematologic/Lymphatic On Anticoagulants: No Allergic/Immunologic Allergic/Immunologic: Denies urticaria Patient History Medical History Abnormal Pap smear of cervix Acute appendicitis Ankle pain (2009) Anxiety Asthma (1992) Cardiovascular system problem (2016) Chicken pox (1986) Cholelithiasis Depression (2011) Foot pain (2009) H. pylori infection (2010) History of heavy periods Mumps (1997) Painful menstrual periods Plantar warts (2004) Premenstrual dysphoric disorder Vaginal yeast infection Surgical History Anesthesia History of nasal surgery (1997) Family History Brother Age: 33 Mental health problem Symptomatic congenital cytomegalovirus (CMV) infection Father Age: 68 Hypertension High cholesterol Grandfather Age: 92 Heart disease Grandfather Cancer Lung cancer Brain cancer Grandmother Cancer Cervical cancer Grandmother Diabetes mellitus Mother No problems noted. Family/Other Diabetes mellitus Social History marital status: household members: spouse and family caregiver/support person: No housing: house Smoking Status: Never smoker alcohol intake: current additional social history: DEVELOPMENTAL AND SOCIAL HISTORY: - Family Constellation: The patient is the 3rd of 4 children from an intact [place] home. Her father worked for [employer] and mom was stay at home. Mom was described as changing religions frequently throughout the patient's childhood. - Childhood Trauma: None. - Developmental milestones: The patient reached normal developmental milestones. - Education: The patient was a good student but was home schooled through high school. She later received her GED and but never went to college. 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 - Relationships: once with 2 kids. - Current Living: with and kids. - Support: 's work income. - Legal: None. Update 09/12/2019: With the patient's working from home in addition to her role as a [id number] mom, entire family is at home with some stress at times getting on each other's nerves. In addition discuss the difficulties related to a child with a developmental disability and this disruption to their schedule. Smoking Status: Never smoker alcohol intake frequency: a few times a month Substance Use Type: does not use Exam Initial Vital Signs Initial Vital Signs: Vital Signs Temperature 98.0 F 06/13/20 20:39 Pulse Rate 67 06/13/20 20:39 Respiratory Rate 16 06/13/20 20:39 Blood Pressure 134/78 06/13/20 20:39 Pulse Oximetry 98 06/13/20 20:39 Const General: cooperative and comfortable Limitations: mental status not altered [facility] Head: normal to inspection and normocephalic Eyes General: appearance normal, both eyes and all related structures Resp Effort & Inspection: normal respiratory effort Auscultation: clear to auscultation bilaterally Cardio Rate: regular rate Rhythm: regular rhythm GI Inspection: non-distended Palpation: soft and No firm Skin Lesions: no lesions Rashes: no rashes Neuro General: patient alert, patient awake and patient oriented x3 Cranial Nerves: CN's II-XI intact bilaterally Cognition: normal cognition Speech: speech normal Other: [place]-Hallpike maneuver positive to the right Extrem General: capillary refill normal Psych Appearance: grossly normal and well kempt Scores GCS Forney coma scale eye opening: Spontaneous Forney coma scale verbal response: Orientated Forney coma scale motor response: Obey commands Felicia coma scale total score: 15 Course Orders Ordered: ED Orders 06/13/20 20:46 EKG-12 Lead Stat Discontinued Medications Meclizine HCl (Meclizine Hcl 12.5 Mg Tablet) 25 mg PO NOW ONE Stop: 06/13/20 22:13 Last Admin: 06/13/20 22:19 Dose: 25 mg Documented by: JANET Vital Signs Vital signs: Vital Signs - 8 hr 06/13/20 20:39 06/13/20 21:54 06/13/20 23:06 Temperature 98.0 F 98.4 F Pulse Rate 67 53 L 53 L Respiratory Rate 16 20 16 Blood Pressure 134/78 116/69 117/60 Pulse Oximetry 98 100 100 Medical Decision Making Lab Data Lab results reviewed: Yes I reviewed the patient's lab results. Labs: Point of Care Testing Test Results Negative Urine Dip Bedside Urine Glucose Negative Bedside Urine Bilirubin - Negative Bedside Urine Ketone - Negative Urine Specific Fitzwilliam 1.020 Bedside Urine Occult Blood - Negative Bedside Urine pH 6.5 Bedside Urine Protein - Negative Bedside Urine Urobilinogen - Negative Bedside Urine Nitrite - Negative Bedside Urine Leukocytes - Negative Esterase Point of care testing: Point of Care Testing Test Results Negative Urine Dip Bedside Urine Glucose Negative Bedside Urine Bilirubin - Negative Bedside Urine Ketone - Negative Urine Specific Fitzwilliam 1.020 Bedside Urine Occult Blood - Negative Bedside Urine pH 6.5 Bedside Urine Protein - Negative Bedside Urine Urobilinogen - Negative Bedside Urine Nitrite - Negative Bedside Urine Leukocytes - Negative Esterase ECG Data Attestation: I personally reviewed and interpreted this ECG as follows: Prior ECG tracings: not available for review Interpretation: Sinus bradycardia Ventricular rate of 52 Normal axis Normal QRS Normal QTC No ST T wave changes MDM Narrative Medical decision making narrative: Patient does have vertigo like symptoms with a positive Nanda-Hallpike maneuver to the right. The rest of her neurologic exam is unremarkable. She did report some improvement after the meclizine. I do suspect this is a peripheral vertigo. She was given instructions on the Luke maneuver that she can try at home and will send home with a prescription for meclizine. I do have low suspicion for CVA or TIA and I feel we can hold on radiologic studies for now. Her urine is unremarkable. She is not . She has a benign abdominal exam. We did discuss that potentially she can have breakthrough bleeding even if it is fpc through her cycle. She is not on control in a do not feel that we necessarily need to start that today based on her symptoms. She was given return precautions and follow-up instructions. She expressed understanding agreement. Discharge Plan Departure Patient Disposition: Home Clinical Impression: Vertigo, Abdominal cramping Instructions: DI for Vertigo Activity Restrictions/Additional Instructions: I recommend that you YouTube the Eply maneuver to help with your vertigo sensations. Also use the medication as directed as needed. Contact your primary provider for follow-up. Return to the emergency department for any new or worsening symptoms Prescriptions: New meclizine 25 mg tablet 25 mg PO TID PRN (Reason: dizziness) Qty: 14 RF: 0 No Action multivitamin tablet 1 tab PO DAILY RF: 0 cholecalciferol (vitamin D3) 2,000 unit capsule 2,000 unit PO DAILY RF: 0 ascorbate calcium (vitamin C) 500 mg tablet 500 mg PO DAILY RF: 0 hydroxyzine HCl 25 mg tablet 12.5 mg PO QID PRN (Reason: nausea) RF: 0 sertraline 50 mg tablet 100 mg PO DAILY Qty: 180 RF: 3 Referrals: Parrish Douglas, [Primary Care Provider] -
[2020-06-13] MEDS: MECLIZINE HCL 12.5 MG TABLET 25 MG PO (22:19)
[2020-06-13 23:06] VITALS: BP 117/60; PULSE 53; RESP 16; O2SAT 100
== END 2020-06-13 23:05 | disposition home or self-care (01) ==
PROVIDERS: Emergency Provider Emergency Medicine; PCP Family Medicine
DX: R42 Dizziness and giddiness (principal); R10.9 Unspecified abdominal pain; R07.9 Chest pain, unspecified
CPT/HCPCS: 81003; 81025; 93005; 99283

== ENCOUNTER → 2020-06-22 09:46 | Outpatient (CLI) | payer BC, SELFPAY ==
[2019-01-24 11:22] VITALS: BMI 34.0
[2020-06-22 10:57] LABS: Add Manual Diff / Slide Review NO; Basophils Absolute Auto 0 /uL (0-100); Basophils Percent Auto 0.6 % (0-2); Eosinophils Absolute Auto 200 /uL (0-450); Eosinophils Percent Auto 3.2 % (2-4); Hematocrit 36.9 % (36-46); Hemoglobin 12.4 g/dL (12.0-16.0); Lymphocytes Absolute Auto 1900 /uL (1100-4500); Lymphocytes Percent Auto 34.3 % (25-40); Mean Corpuscular HGB Conc 33.5 % (30-36); Mean Corpuscular Hemoglobin 29.9 PG (26-34); Mean Corpuscular Volume 89.2 fL (80-100); Monocytes Absolute Auto 300 /uL (0-900); Monocytes Percent Auto 5.6 % (3-14); Neutrophils Absolute Auto 3000 /uL (1500-7000); Neutrophils Percent Auto 56.3 % (50-75); Platelet Count 239 X10^3/uL (150-400); Red Blood Cell Count 4.13 X10^6/uL (4.0-5.2); Red Cell Distribution Width 13.2 % (11.6-14.8); White Blood Cell Count 5.4 X10^3/uL (4.5-11.0)
[2020-06-22 11:17] LABS: Alanine Aminotransferase 14 IU/L (<35); Albumin 4.2 g/dL (3.5-5.0); Albumin Globulin Ratio 1.5 (1.0-2.8); Alkaline Phosphatase 53 U/L (38-126); Aspartate Aminotransferase 23 IU/L (14-36); BUN Creatinine Ratio 25.5 (6-22); Bilirubin Total 0.5 mg/dL (0.2-1.3); Blood Urea Nitrogen 14 mg/dL (7-17); Calcium 9.4 mg/dL (8.4-10.2); Carbon Dioxide 27 mmol/L (22-32); Chloride 106 mmol/L (98-107); Cholesterol 195 mg/dL (140-199); Estimated Glomerular Filt Rate > 60.0 mL/min (>60); Globulin 2.8 g/dL (1.7-4.1); Glucose 91 mg/dL (70-100); HDL Cholesterol 49 mg/dL (40-60); HEMOLYSIS < 15 (0-50); LDL Cholesterol Calculated 130 mg/dL (<100); Potassium 4.8 mmol/L (3.4-5.1); Sodium 138 mmol/L (137-145); Triglycerides 81 mg/dL (35-150)
[2020-06-22 11:46] LABS: TSH w/ Reflex to FT4 1.76 uIU/mL (0.47-4.68)
== END ==
PROVIDERS: PCP Family Medicine; Referring Provider Family Medicine; Visit Provider Family Medicine
DX: Z13.220 Encounter for screening for lipoid disorders (principal); Z13.228 Encounter for screening for other metabolic disorders; Z13.29 Encounter for screening for other suspected endocrine disorder; Z76.89 Persons encountering health services in other specified circumstances
CPT/HCPCS: 36415; 80053; 80061; 84443; 85025

== ENCOUNTER → 2020-08-28 08:58 | Outpatient (CLI) | payer BC, SELFPAY ==
[2019-01-24 11:22] VITALS: BMI 34.0
--- NOTE | 2020-08-28 08:59 | DI.RAD.S_ITS ---
PROCEDURE: XR ANKLE LT MIN 3V INDICATIONS: left ankle/silva pain TECHNIQUE: 3 views of the ankle were acquired. COMPARISON: None. FINDINGS: Bones: No fractures or dislocations. Ankle mortise is normally aligned. No suspicious bony lesions. Calcaneal spurring. Soft tissues: No tibiotalar joint effusion. Achilles tendon appears normal. IMPRESSION: No acute osseous abnormalities. If clinical symptoms persist or clinical suspicion for pathology is high, a repeat examination in 7-10 days, or advanced imaging such as CT or MRI is suggested for further evaluation. Dictated by: Madeline Garcia M.D. on 08/28/2020 at 10:01 Approved by: Madeline Garcia M.D. on 08/28/2020 at 10:02
== END ==
PROVIDERS: PCP Family Medicine; Referring Provider Family Medicine; Visit Provider Family Medicine
DX: M25.572 Pain in left ankle and joints of left foot (principal); M77.32 Calcaneal spur, left foot
CPT/HCPCS: 73610